=== PATIENT | male | born 1965 | race Two or more races ===

== ENCOUNTER → 2016-05-19 13:06 | Outpatient (CLI) | payer BC ==
[~2016-05-19 13:06] MED LIST: HYDROCODONE-APA1 TAB PO
[2016-06-02 09:55] VITALS: BMI 28.8
== END | disposition home or self-care (01) ==
LOC: D.MRI 13:06
DX: M75.122 Complete rotator cuff tear or rupture of left shoulder, not specified as traumatic (principal)

== ENCOUNTER 2016-06-02 09:39 | Day surgery (SDC) | payer BC ==
[~2016-06-02] VITALS: Ht 175.3 cm; Wt 88.5 kg
[2016-06-02 09:55] VITALS: Ht 175.3 cm; Wt 88.5 kg
[2016-06-02] MEDS ORDERED: HYDROCODONE-APA1 TAB PO (13:03)
--- NOTE | 2016-06-02 14:45 | NUR ---
RIGHT HAND PIV DC'D WITH TIP INTACT, PATIENT DRESSING IN PERSONAL CLOTHING
--- NOTE | 2016-06-02 15:00 | NUR ---
DISCHARGE INSTRUCTIONS WITH REVIEWED WITH PATIENT AND SPOUSE, DISCHARGED HOME VIA WHEELCHAIR TO PRIVATE VEHICLE WITH SPOUSE
--- NOTE | 2016-06-02 18:23 | OP ---
PATIENT NAME: PAT BROOKS MEDICAL RECORD: [id number] :69 LOCATION:[facility] ADMISSION DATE: SURGEON: DELIA EPSTEIN MD DATE OF OPERATION: 06/02/2016 PREOPERATIVE DIAGNOSES: Rotator cuff tear of the left shoulder with impingement syndrome, acromioclavicular arthritis. POSTOPERATIVE DIAGNOSES: Rotator cuff tear of the left shoulder with impingement syndrome, acromioclavicular arthritis. PROCEDURES: 1. Arthroscopic rotator cuff repair. 2. Arthroscopic distal clavicle excision done through a separate incision -- 1 cm. 3. Arthroscopic subacromial decompression with acromioplasty and bursectomy. SURGEON: Delia Epstein MD ANESTHESIA: General. INTRAOPERATIVE COMPLICATIONS: None. SUMMARY OF PATHOLOGIC FINDINGS: The patient was indeed found to have a full thickness rotator cuff tear at the anterior margin of the supraspinatus consistent with the MRI. OPERATIVE SUMMARY IN DETAIL: After obtaining the appropriate preoperative orthopedic surgery consent as well as anesthetic consultation, evaluation and clearance, the patient was brought to the operating room and placed on the operating table in supine position. After adequate general laryngeal mask airway was administered, the patient was placed in a right lateral decubitus position. All pressure points were well padded to include down leg peroneal pad as well as axillary roll. The patient was held firmly to the operating table using the vacuum pack suction system. Left upper extremity and shoulder were then prepped and draped in routine sterile fashion. The arm was held in the [employer] traction boom at 30 degrees of forward flexion, 30 degrees of abduction with 10 pounds of traction laterally. Arthroscopy was established in the glenohumeral joint from a posterior portal. Anterior portal was established in the anterior safe interval. Diagnostic arthroscopy revealed the above findings. The rotator cuff tear was noticed. A transrotator cuff tear portal was created. Debridement of the decortication of the footprint was followed by establishing the rotator cuff in the subacromial space. While on the subacromial space, [employer] tissue ablation system was utilized to denude the undersurface of the acromion and release the coracoacromial ligament. A 5-0 barrel bur was used to perform acromioplasty at the level of acromioclavicular joint. A separate anterior arthroscopic portal under direct arthroscopic visualization distal clavicle was taken down and this was then followed by rotator cuff repair. Single FiberWire was placed in an inverted mattress style fashion. This was anchored laterally using a 4.75 SwiveLock from [employer]. Having completed this, arthroscopy portals were closed in routine interrupted fashion using 4-0 Prolene. Sterile dressings were applied. The patient was awakened and taken to the recovery room in stable condition. All final needle and sponge counts were correct. OPERATIVE REPORT [id number] PAT BROOKS TRANSINT:[id number] Voice Confirmation ID: [id number] DOCUMENT ID: [id number] TETE DOOLEY, DELIA MONZON at 1823 CC: [id number] DICTATION DATE: 06/02/16 1301 HIDE PULLER: 06/02/16 1534 [facility] 06/02/16 [facility] [address] [place] [address]
== END 2016-06-02 15:02 | disposition home or self-care (01) ==
LOC: D.OPS 09:39 → D.PAN 15:30 → D.OPS 15:30
DX: M75.122 Complete rotator cuff tear or rupture of left shoulder, not specified as traumatic (principal); M75.42 Impingement syndrome of left shoulder; M13.812 Other specified arthritis, left shoulder

== ENCOUNTER → 2018-07-07 06:33 | Outpatient (CLI) | payer BC ==
[2016-06-02 09:55] VITALS: BMI 28.8
== END | disposition home or self-care (01) ==
LOC: D.US 06:33
PROVIDERS: ATTEND Family Medicine
DX: K80.20 Calculus of gallbladder without cholecystitis without obstruction (principal)

== ENCOUNTER → 2019-12-14 14:23 | Outpatient (CLI) | payer BC ==
[2016-06-02 09:55] VITALS: BMI 28.8
== END | disposition home or self-care (01) ==
LOC: D.HCCECHO 14:23
PROVIDERS: ATTEND Internal Medicine Cardiovascular Disease
DX: R01.1 Cardiac murmur, unspecified (principal)